=== PATIENT | female | born 1965 | race Caucasian/White ===

== ENCOUNTER 2016-12-01 11:36 | Day surgery (SDC) | payer OTHER ==
[~2016-12-01] VITALS: Ht 142.2 cm; Wt 54.6 kg
[2016-12-01 12:33] VITALS: Ht 142.2 cm; Wt 54.6 kg
[2016-12-01] MEDS ORDERED: LISI10TA2 PO (12:40)
[2016-12-01] MEDS ORDERED: MIDAZOLAM 1 MG/ML 2 ML INJ ONE ×2 (13:28→13:29)
[2016-12-01] MEDS ORDERED: FENTAnyl 50 MCG/ML VIAL ONE (13:28)
[2016-12-01 13:45] VITALS: BP 103/54; PULSE 51; RESP 12
--- NOTE | 2016-12-02 04:17 | GILP ---
DATE OF PROCEDURE: 12/01/2016 PREOPERATIVE DIAGNOSIS: Right lower quadrant pain and occult blood positive stool. PROCEDURE DONE: Colonoscopy. POSTOPERATIVE DIAGNOSIS: Scattered diverticula in the left colon and internal hemorrhoids, grade II . Otherwise normal. DESCRIPTION OF PROCEDURE: The patient was put in the left lateral decubitus after EGD, monitored on oximetry, EKG, blood pressure. Then 1 mg of IV Versed was given and 25 mcg of fentanyl was given. Very carefully advanced an Olymp us video colonoscope all the way to cecum. Appendiceal opening and ileocecal valve were identified. Cecum, ascending colon, transverse colon essentially normal. Descending and sigmoid colon showed few scattered diverticula but no other abnormality. In the rectum, rectosigmoid was unremarkable ex cept on retroflexion and antegrade exam, there were internal hemorrhoids. Digital exam also repeate d. There was no evidence of any masses. FINAL IMPRESSION: Except for internal hemorrhoids and scattered diverticula, it is normal. Recommen d repeat colonoscopy in 10 years. Meanwhile, if she continues to have occult bleeding, recommend ca psule enteroscopy. Also follow her H and H and iron level. She will be advised to go on a high fibe r diet, take more fluids and Anusol cream or suppositories if the hemorrhoids become an issue. Dictated By: SUN LEOS Conf#: [id number] DID#: [id number] CC: ISAIAH GALLOWAY MD;*EndCC*
--- NOTE | 2016-12-02 04:24 | GILP ---
DATE OF PROCEDURE: 12/01/2016 PREOPERATIVE DIAGNOSIS: Abdominal pain, right; occult blood positive stool. PROCEDURE DONE: Esophagogastroduodenoscopy and biopsy. POSTOPERATIVE DIAGNOSES: 1. Small hiatus hernia. 2. Nodular area in the body and fundus area; 2 lesions biopsied, very small. 3. Gastric erosions. Random biopsy also done. 4. Duodenum normal. DESCRIPTION OF PROCEDURE: The patient was put in the left lateral decubitus after obtaining informe d consent, was sedated with 3 mg of IV Versed and 75 mcg of fentanyl. I very carefully advanced the Olympus video upper endoscope into the esophagus, stomach and duodenum . A thorough examination of the entire esophagus was normal except for a small sliding hernia of 2 cm size. By retroflexion also this was done and in the fundus and body, there were 2 small nodular areas. These were photographed and biopsies done. In the stomach, antral area, there were some ero sions and mild gastritis in the antrum, so random biopsies were done for H. pylori. Duodenal bulb and first and second part of the duodenum were unremarkable. Then the scope was slowly withdrawn af ter retroflexion reexamining the fundus, body and antrum in the esophagus on the way out. Examinati on of the esophagus on the way out was also normal. The patient had no complications. Plan will be to proceed with colonoscopy while we are waiting for biopsy report. She will follow up in 2 weeks. Dictated By: SUN LEOS Conf#: [id number] DID#: [id number] CC: ISAIAH GALLOWAY MD;*End*
== END 2016-12-01 15:01 | disposition home or self-care (01) ==
LOC: GIL 11:36
PROVIDERS: ATTEND Internal Medicine
DX: K92.1 Melena (principal); K44.9 Diaphragmatic hernia without obstruction or gangrene; K29.60 Other gastritis without bleeding; K64.1 Second degree hemorrhoids
CPT/HCPCS: 43239; 45378; 88305; 88312; J2250; J3010; Z7610

== ENCOUNTER 2017-11-26 17:09 | Emergency (ER) | END 2017-11-26 20:51 | disposition home or self-care (01) ==